=== PATIENT | female | born 1930 | race Caucasian/White ===

== ENCOUNTER 2017-12-26 11:28 | Inpatient (IN) | payer MEDICARE ==
[2017-12-26 12:56] LABS: #Eosinphils 0.1 thou/uL (0.0-0.7); #Lymphocytes 2.2 thou/uL (1.20-3.40); #Monocytes 0.7 thou/uL (0.11-0.59); #Neutrophils 6.8 thou/uL (1.40-6.50); %Basophils 0.3 % (0.0-1.0); %Eosinophils 0.9 % (0.0-10.0); %Lymphocytes 22.2 % (21.0-51.0); %Monocytes 6.7 % (0.0-10.0); %Neutrophils 69.9 % (42.0-75.0); Hemoglobin 13.8 g/dL (12.0-16.0); Mean Corpuscular HGB CONC 32.8 g/dL (32.0-36.0); Mean Corpuscular Hemoglobin 32.3 pg (27.0-31.0); Mean Corpuscular Volume 98.5 fl (81.0-99.0); Mean Platelet Volume 8.1 fL (7.4-10.4); Platelet Count 221 thou/uL (130-400); RBC Distribution Width 13.2 % (11.5-14.5); Red Blood Cell (RBC) Count 4.26 mill/uL (4.20-5.40); White Blood Cell (WBC) Count 9.7 thou/uL (4.8-10.8)
[2017-12-26 13:00] LABS: INR-International Normal Ratio 0.9; PTT 29.7 SEC (22.9-36.1); Prothrombin Time 12.3 SEC (12.0-14.7)
[2017-12-26 13:16] LABS: ALT (SGPT) 16 U/L (8-55); AST (SGOT) 19 U/L (5-34); Alkaline Phosphatase 75 U/L (40-150); Anion Gap 14 mmol/L (10-20); BUN (Urea Nitrogen) 25 mg/dL (9.8-20.1); Bilirubin, Total 0.5 mg/dL (0.2-1.2); CK (CPK) 40 U/L (29-168); Calc. Creatinine Clearance 0 mL/min (70-130); Carbon Dioxide 24 mmol/L (23-31); Chloride 104 mmol/L (98-107); Estimated GFR-MDRD 49; Globulin 3.1 g/dL (2.4-3.5); Glucose 122 mg/dL (83-110); Potassium 4.1 mmol/L (3.5-5.1); Protein, Total 7.1 g/dL (6.0-8.3); Sodium 138 mmol/L (136-145)
[2017-12-26 13:20] LABS: Troponin I Less than 0.010 ng/mL (< 0.028)
--- NOTE | 2017-12-26 14:26 | CT ---
CT OF THE BRAIN WITHOUT CONTRAST: Date: 12/26/17 COMPARISON: 06/14/16. HISTORY: Vision changes and altered mental status. Blurry vision. TECHNIQUE: Multiple contiguous axial images were obtained in a CT of the brain without contrast. FINDINGS: There are scattered hypodensities in the subcortical and periventricular white matter. There is a new confluent area of infarction in the right occipital lobe when compared to the prior radiograph. No i ntracranial hemorrhage or hydrocephalus seen. No downward herniation or midline shift is seen. The calvarium and overlying soft tissues are unremarkable. The visualized paranasal sinuses and masto id air cells are well aerated. IMPRESSION: There is a new right occipital infarction. The age of this infarct is indeterminate, but has occurred since the exam of 06/14/16. POS: ELODIA
--- NOTE | 2017-12-26 15:47 | PDOC.EVN ---
Event Note - Event Note Event Note: 160771 H&P DICTATED 1. Acute CVA 2. HTN 3. HPL 4. H/O CKD plan; see orders
[2017-12-26] MEDS ORDERED: Sodium Chloride 0.9% 1,000 ML IV SCH (16:00)
--- NOTE | 2017-12-26 17:11 | MRI ---
BRAIN MRI WITHOUT CONTRAST: HISTORY: Indeterminate right TURN SUPERVISOR distribution infarction. COMPARISON: None. CORRELATION: Noncontrast head CT from 12/26/2017. FINDINGS: No hemorrhage on the axial gradient echo sequence. Central arterial flow voids are maintained. There are T2 and FLAIR white matter hyperintensities wit h chronic small vessel ischemic changes. There is T2 and FLAIR white matter hyperintensity with sulc al effacement involving the right occipital lobe. There is associated restricted diffusion. There i s evidence of a right TURN SUPERVISOR distribution infarction. No additional areas of restricted diffusion. No evidence of hydrocephalus. Adequate aeration of the sinuses and mastoid air cells. T1 marrow signal intensity to the calvarium is appropriate. Midline brain parenchymal structures are unremarkable. IMPRESSION: 1. Acute right posterior cerebral artery distribution infarction. 2. Chronic small vessel ischemic changes of the white matter. 3. Age appropriate atrophy. POS: ELODIA
[2017-12-26 17:40] LABS: Troponin I Less than 0.010 ng/mL (< 0.028)
--- NOTE | 2017-12-26 18:13 | ULT ---
CAROTID ULTRASOUND WITH MARIE-SCALE AND DOPPLER DUPLEX COLOR-FLOW IMAGING SPECTRAL ANALYSIS PERFORMED: CLINICAL INDICATION: Carotid stenosis. FINDINGS: There is mild to moderate scattered atherosclerotic calcification of the carotid arteries. PEAK SYSTOLIC VELOCITY (CM/S): Right CCA 47 Left CCA 65 Right ICA 54 Left ICA 50 There is antegrade directional flow within the visualized bilateral vertebral arteries. IMPRESSION: 1. No hemodynamically significant stenosis of the right internal carotid artery. 2. No hemodynamically significant stenosis of the left internal carotid artery. POS: ELODIA
[2017-12-26 18:21] VITALS: BMI 24.9
[2017-12-26 20:25] LABS: Troponin I Less than 0.010 ng/mL (< 0.028)
[2017-12-26] MEDS ORDERED: NIFEdipine XL 60 MG TAB PO SCH (21:00)
[2017-12-26] MEDS ORDERED: Atorvastatin Calcium 40 MG TAB PO SCH (21:00)
--- NOTE | 2017-12-27 01:16 | CON ---
DATE OF CONSULTATION: 12/26/2017 REASON FOR CONSULTATION: Left eye vision loss. REFERRING PROVIDER: Dr. Osman Sparks. HISTORY OF PRESENT ILLNESS: Ms. Hardin is a pleasant 87-year-old female who has been conc erned for evaluation of left eye vision loss history. The patient reports that on Tuesday, she star moi noticing difficulty seeing with her left eye. She had seen her primary care physician, who advis ed her to go to the emergency room for further evaluation. She notes that her vision has not improve d over the past 2 days. She denies any diplopia, difficulty with gait or balance, numbness, tingling , weakness of upper or lower extremities, dysarthria, dysphagia, chest pain, or palpitations. PAST MEDICAL HISTORY: Significant for hypertension, hyperlipidemia, hypothyroidism, insomnia. PAST SURGICAL HISTORY: None significant. SOCIAL HISTORY: She denies smoking, alcohol use, or illicit drug use. CURRENT MEDICATIONS: Please review MAR. ALLERGIES: Include MEPERIDINE. FAMILY HISTORY: Noncontributory. REVIEW OF SYSTEMS: As mentioned in the HPI, otherwise was negative. PHYSICAL EXAMINATION: VITAL SIGNS: Blood pressure of 100/87, pulse of 60, temperature of 98, respirations of 16, O2 sats o f 97% on room air. GENERAL: Well-developed, well-nourished female in no apparent distress. RESPIRATORY: Clear to auscultation bilaterally. CARDIOVASCULAR: Regular rate and rhythm. NEUROLOGICAL: Mental status: Patient is awake, alert, oriented x3. Speech and language: Fluent sp eech. Cranial nerves: Pupils are 3 mm and reactive. She has a left homonymous hemianopsia. Face i s symmetric. Tongue and uvula midline. Motor exam showed normal tone and bulk with 5/5 strength in both upper and lower extremities. Sensory: Sensation was intact and symmetric. Deep tendon reflexe s are 2+ reflexes in both upper and lower extremities. Babinski: Plantar responses flexion bilate rally. Coordination intact to [id number] and finger tapping bilaterally. LABORATORY DATA: Reviewed, which included CBC, coag panel, and CMP, which is significant for glucose of 122, otherwise unremarkable. IMAGING STUDIES: MRI brain without contrast was reviewed, which showed subacute right occipital isch emic infarct. Carotid Dopplers were reviewed, which showed no hemodynamically significant stenosis. IMPRESSION: 1. Right occipital ischemic infarct. 2. Hypertension. 3. Hyperlipidemia. ASSESSMENT AND PLAN: Ms. Hardin is a pleasant 87-year-old female who presented with a 2-d ay history of left-sided vision loss. On exam, she does have left homonymous hemianopsia. Her MRI d oes show right occipital lobe infarct. At this time, I would recommend switching her aspirin to 325 mg daily for secondary stroke prevention. I would recommend obtaining echocardiogram. If echocardio gram is normal, patient is okay to be discharged to home with outpatient appointment to heel turner in 2-3 weeks. 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 I will be happy to see her in my clinic in 4-6 weeks post-discharge. Thank you for consultation.
[2017-12-27 05:21] LABS: Cardiac Risk 3.7 (Less than 4.5)
[2017-12-27] MEDS ORDERED: Levothyroxine Sodium 25 MCG TAB PO SCH (06:00)
[2017-12-27] MEDS ORDERED: Saccharomyces boulardii 250 MG CAP PO SCH (09:00)
[2017-12-27] MEDS ORDERED: Losartan 25 MG TAB PO SCH (09:00)
[2017-12-27] MEDS ORDERED: Aspirin 325 mg Enteric Coated Tablet PO SCH (09:00)
--- NOTE | 2017-12-27 14:20 | HP ---
DATE OF ADMISSION: 12/26/2017 CHIEF COMPLAINT: Blurry vision. HISTORY OF PRESENT ILLNESS: The patient is an 87-year-old female with past medical history of hypert ension, hyperlipidemia, CKD, coronary artery disease, who came to the ER complaining of blurry vision . The patient says she woke up on Tuesday morning, she started noticing blurry vision and then blur ry vision persisted, so she went to the huc ob today who recommended to come to the ER. The pat ient also complains of intermittent occipital headaches, shooting kind of pain, no aggravating, no re lieving factors, mild in intensity. Denies any nausea, denies any vomiting, denies any numbness, den ies any tingling, denies any weakness in the arms or legs. PAST MEDICAL HISTORY: As per HPI. PAST SURGICAL HISTORY: Left kidney partial removal, hysterectomy, cardiac stents, bilateral knee cherelle jude. SOCIAL HISTORY: Denies smoking, denies alcohol use, denies any drugs. FAMILY HISTORY: Positive for heart problems. MEDICATIONS: Reviewed. REVIEW OF SYSTEMS: Constitutional: Denies any fever, denies any chills. Eyes: Positive for vision problems. Neck: Denies any neck pain. Cardiovascular: Denies any chest pain. Respiratory: Carlos es any cough, denies any sputum production. Gastrointestinal: Denies nausea, vomiting. Musculoskel etal: Denies any joint deformities. Cranial nerve system: Positive for headache. Psychiatric: De nies anxiety. Integumentary: Denies any rash. All other review of systems are reviewed and are neg ative. PHYSICAL EXAMINATION: CONSTITUTIONAL AND VITAL SIGNS: At the time of H and P performed, blood pressure is 140/70, afebrile , respiratory rate is 18. GENERAL: The patient appears comfortable. HEENT: Pupils equal, round, and reactive. Anterior naris patent. Nose normal. Ears normal. Teeth intact. Tongue is moist. NECK: Supple, no JVD. CARDIOVASCULAR SYSTEM: S1, S2 present. Regular rate and rhythm. No murmurs, no rubs, no gallops. RESPIRATORY SYSTEM: No wheezing, no rhonchi. GASTROINTESTINAL: Abdomen is soft, nontender, no guarding, no organomegaly. CRANIAL NERVE SYSTEM: Awake, follows commands. Speech clear. Eyes positive for decreased vision on the left eye. INTEGUMENTARY: No rashes seen. PSYCHIATRIC: Mood is appropriate at this time. LABORATORY DATA: At the time of H and P performed, sodium 138, potassium 4.1, chloride 104, CO2 of 2 4, BUN 25, creatinine 1.06, glucose 122, troponin less than 0.010, serum total protein 7.1, albumin 4 . PT 12.3, INR 0.9. White count 9.7, hemoglobin 13.8, platelet count 221. IMAGING: CT head, new right occipital infarction seen, age indeterminate. ASSESSMENT AND PLAN: The patient is an 87-year-old female. 1. Subacute versus acute cerebrovascular accident. Plan to consult PT, OT, speech therapy evaluatio n. Plan to consult Neurology to evaluate the patient. Plan to check MRI brain. The patient has car diac stents. We will check with MRI if it is compatible. 2. History of hypertension. Monitor blood pressure. Continue home blood pressure medications. 3. History of hyperlipidemia. Continue statin. 4. History of coronary artery disease. Continue aspirin. Might need to add Plavix also, since elizabeth ent is not on Plavix and recent stroke. 5. History of chronic kidney disease, creatinine is stable at this time. Case was discussed in detail with the patient. The patient is FULL CODE.
[2017-12-27 16:12] VITALS: BP 168/90; TEMP 98.3
--- NOTE | 2017-12-27 16:50 | PDOC.PN ---
- Subjective Encounter Start Date: 12/27/17 Encounter Start Time: 09:00 Subjective: pt up in bed still has some blurry vision on her left eye - Objective Vital Signs & Weight: Vital Signs (12 hours) Temp Pulse Pulse Pulse Resp BP BP 12/27/17 16:00 98.3 F 62 20 12/27/17 12:00 98 F 65 16 12/27/17 11:01 62 63 136/70 157/77 H 12/27/17 08:59 98 F 65 16 12/27/17 08:11 65 65 141/71 H 149/85 H 12/27/17 08:00 98 F 65 12 BP Pulse Ox 12/27/17 16:00 168/90 H 93 L 12/27/17 12:00 144/74 H 94 L 12/27/17 11:01 12/27/17 08:59 94 L 12/27/17 08:11 12/27/17 08:00 147/77 H 97 Weight Weight 149 lb 11.2 oz Result Diagrams: 12/26/17 12:45 12/26/17 12:45 Phys Exam - Physical Examination HEENT: PERRLA Neck: no nodes, no JVD Respiratory: no wheezing Cardiovascular: RRR, no significant murmur Gastrointestinal: soft mild left visual field cut Psychiatric: normal affect, A&O x 3 Dx/Plan - Plan * . 1) right occpital ischemia infract 2) htn plan: pt's echo is pending. Acute right posterior circulatory infract. Pt on asa /stain. will follow up with neurology as outpatient. htn stable. Review of Systems - Review of Systems Eyes: Other (blurry vision) ENT: negative: Ear Pain, Ear Discharge, Nose Pain, Nose Discharge, Nose Congestion, Mouth Pain, Mouth Swelling, Throat Pain, Throat Swelling, Other Respiratory: negative: Cough, Dry, Shortness of Breath, Hemoptysis, SOB with Excertion, Pleuritic Pain, Sputum, Wheezing Gastrointestinal: negative: Nausea, Vomiting, Abdominal Pain, Diarrhea, Constipation, Melena, Hematochezia, Other Genitourinary: negative: Dysuria, Frequency, Incontinence, Hematuria, Retention , Other - Medications/Allergies Allergies/Adverse Reactions: Allergies Allergy/AdvReac Type Severity Reaction Status Date / Time meperidine HCl [From Demerol] Allergy Verified 09/26/16 15:25 Medications: Current Medications Aspirin (Ecotrin) 325 mg PO DAILY [facility] Last Admin: 12/27/17 09:14 Dose: 325 mg Atorvastatin Calcium (Lipitor) 40 mg PO HS [facility] Last Admin: 12/26/17 20:19 Dose: 40 mg Levothyroxine Sodium (Synthroid) 25 mcg PO 0600 [facility] Last Admin: 12/27/17 05:51 Dose: 25 mcg Losartan Potassium (Cozaar) 100 mg PO DAILY [facility] Last Admin: 12/27/17 09:14 Dose: 100 mg Nifedipine (Procardia Xl) 60 mg PO HS [facility] Last Admin: 12/26/17 20:20 Dose: 60 mg Pantoprazole Sodium (Protonix) 40 mg PO DAILY [facility] Last Admin: 12/27/17 09:14 Dose: 40 mg Saccharomyces Boulardii (Florastor) 250 mg PO DAILY [facility] Last Admin: 12/27/17 09:14 Dose: Not Given
== END 2017-12-27 19:12 | disposition home or self-care (01) | DRG 66 ==
LOC: ERS 11:28 → 2SE 15:01
PROVIDERS: ADMIT Internal Medicine; ATTEND Internal Medicine
DX: I63.9 Cerebral infarction, unspecified (principal); H53.462 Homonymous bilateral field defects, left side; E03.9 Hypothyroidism, unspecified; E78.5 Hyperlipidemia, unspecified; I10 Essential (primary) hypertension; I25.10 Atherosclerotic heart disease of native coronary artery without angina pectoris; I12.9 Hypertensive chronic kidney disease with stage 1 through stage 4 chronic kidney disease, or unspecified chronic kidney disease; N18.9 Chronic kidney disease, unspecified; G47.00 Insomnia, unspecified; Z87.891 Personal history of nicotine dependence; Z88.5 Allergy status to narcotic agent; Z79.82 Long term (current) use of aspirin; Z79.899 Other long term (current) drug therapy; Z96.653 Presence of artificial knee joint, bilateral
CPT/HCPCS: 36415; 70450; 70551; 80053; 80061; 82553; 84484; 85025; 85610; 85730; 93005; 93306; 93880; G8978-GP-CK; G8979-GP-CK; G8980-GP-CK; G8987-GO-CI; G8988-GO-CI; G8989-GO-CI; G9162-GN-CH; G9163-GN-CH